=== PATIENT | female | born 1960 | race Caucasian/White ===

== ENCOUNTER → 2017-05-28 | Outpatient (CLI) | payer OTHER ==
--- NOTE | 2017-05-28 16:41 | REP ---
Bilateral digital screening mammogram: 05/28/2017: Comparison: 03/24/2016, 11/25/2014, 09/21/2013. Clinical history: Screening examination. She has no current complaints, personal or family history of breast cancer. The breasts are very dense. This limits the sensitivity of mammography. Scattered lymph nodes are seen in the axilla. In the upper outer quadrant of the left breast is a new 17 x 17 x 9 mm density with pleomorphic cluster of microcalcifications within. No nodular tissue asymmetry or calcifications in this region on the previous mammogram. There are no other clusters of microcalcification, dominant masses, skin thickening or other secondary signs of malignancy. A few punctate calcifications periareolar region upper outer quadrant of the left breast unchanged from multiple prior studies as a benign finding. Impression: 1. BI-RADS/ACR category 0 mammogram, incomplete. Additional imaging and/or prior mammograms for comparison. Although suspicious on its right, further evaluation with diagnostic mammogram and breast ultrasound warranted to determine best route for any potential biopsy. Remainder the breast is unremarkable and unchanged. This mammogram was interpreted with the aid of an FDA-approved computer-aided detection system. The patient states she had a clinical breast exam in 05/2017.
== END ==
LOC: M WHC 11:02
PROVIDERS: ATTEND Nurse Practitioner Family
DX: Z12.31 Encounter for screening mammogram for malignant neoplasm of breast (principal)

== ENCOUNTER → 2017-06-03 | Outpatient (CLI) | payer OTHER ==
--- NOTE | 2017-06-03 17:12 | REP ---
DIAGNOSTIC MAMMOGRAM LEFT BREAST WITH LEFT BREAST ULTRASOUND: Spot compression views of the left breast are performed in the upper outer quadrant and correlated with the recent mammogram of 05/28/2017 and compared to other prior exams. There is persistence of an ill-defined oval nodule in the left upper outer quadrant posteriorly in the region of the axillary tail. Maximum diameter is 1.5 cm. There are multiple clustered pleomorphic microcalcifications within the nodule. Real-time sonographic evaluation of the upper outer quadrant of the left breast demonstrates a heterogeneous solid appearing nodule measuring 1.1 cm in diameter. Tiny echogenic foci within the nodule are compatible with microcalcifications. IMPRESSION: ACR category 4 suspicious. Ill-defined nodule in the left axillary tail region contains microcalcifications and is solid by ultrasound. Recommend ultrasound guided biopsy. The patient should have a postprocedure mammogram following the ultrasound guided biopsy and the specimens should be radiographed for the presence of microcalcifications. BI-RADS/ACR category 4 mammogram. Suspicious abnormality - biopsy should be considered. Usually requires biopsy. This mammogram was interpreted with the aid of an FDA-approved computer-aided detection system. The patient letter being requested is M4. Signed by Navid Collins MD 06/04/2017 04:54 P
== END ==
LOC: M RAD 14:50
PROVIDERS: ATTEND Nurse Practitioner Family
DX: R92.8 Other abnormal and inconclusive findings on diagnostic imaging of breast (principal)
CPT/HCPCS: 76642; G0206

== ENCOUNTER 2018-10-17 07:12 | Outpatient (RCR) | payer OTHER | END 2018-10-18 | LOC: M OT 07:12 | PROVIDERS: ATTEND Family Medicine | DX: M79.602 Pain in left arm (principal) ==

== ENCOUNTER 2018-11-16 08:00 | Outpatient (RCR) | payer OTHER | END 2018-11-18 | LOC: M OT 08:00 | PROVIDERS: ATTEND Family Medicine | DX: M79.602 Pain in left arm (principal) ==

== ENCOUNTER → 2018-11-18 | Outpatient (CLI) | payer OTHER ==
--- NOTE | 2018-11-18 15:10 | REP ---
MRI left elbow without contrast: History: Pain in the left arm. No comparison imaging. X-rays made by history. Technique: Axial, coronal and sagittal imaging planes are utilized. T1 and T2-weighted scans were included with and without fat saturation. MRI findings: Cortical and medullary bone signal intensity are normal in the distal humerus, proximal radius, and proximal ulna. No occult fracture is seen. No bony destructive lesion is appreciated. There is no evidence of elbow joint effusion. Triceps, biceps, and brachialis tendons appear intact. Skeletal muscle is normal in signal intensity on T1 and T2-weighted scans. No juxtaarticular mass or cyst is seen. There is no evidence of medial or lateral collateral ligament disruption. There is some heterogeneous signal intensity however, at the lateral epicondyle which may reflect mild lateral epicondylitis changes. The medial epicondylar soft tissues are unremarkable. This finding should be correlated with signs and symptoms. No cartilaginous defect is seen. Impression: Findings consistent with lateral epicondylitis. Otherwise negative MRI study of the left elbow. Electronically Signed by Mazin Lott MD 11/18/2018 04:04 P
--- NOTE | 2018-11-18 15:41 | REP ---
MRI left shoulder without contrast: History: Pain in the left arm. No improvement with physical therapy. X-rays negative by history. No radiographs available. Technique: Axial, oblique coronal, and oblique sagittal imaging planes were utilized. T1 and T2-weighted scans were obtained with and without fat saturation in the usual fashion. MRI findings: Cortical and medullary bone signal intensity are normal. There is a moderate size subacromial subdeltoid bursal effusion noted. Minimal glenohumeral joint fluid is seen. There is AC joint hypertrophy mild in degree consistent with early osteoarthritis. There is mild inferolateral acromion process spurring. Tendinosis tendonitis change is seen in the supraspinatus tendon diffusely on oblique coronal T1-weighted scans with swelling and increased signal intensity. No focal cuff tear is seen. Biceps tendon appears intact. The infraspinatus tendon is unremarkable. Subscapularis tendon shows mild tendinosis change as well. No anterior or posterior cartilaginous labral tear is appreciated. No articular cartilage lesion is seen. The superior labral cartilage appears to be intact. There is a 8 mm cyst anterior to the subscapularis tendon with some adjacent edema consistent with a small ganglion cyst. Impression: 1. Moderate tendinosis tendonitis change in the distal supraspinatus. Subacromial subdeltoid bursal effusion. AC joint hypertrophy and minimal acromion process spurring. 2. Small 8 mm ganglion cyst along the anterior margin of the subscapularis tendon consistent with a small ganglion. There is some adjacent soft tissue edema. There is tendinosis change in the subscapularis tendon as well. Electronically Signed by Mazin Lott MD 11/18/2018 04:04 P
== END ==
LOC: M RAD 12:34
PROVIDERS: ATTEND Family Medicine
DX: M79.602 Pain in left arm (principal); M67.412 Ganglion, left shoulder

== ENCOUNTER → 2020-04-30 | Outpatient (REF) | payer OTHER | LOC: M SFHCWAGY 10:41 | PROVIDERS: ATTEND Nurse Practitioner Family | DX: Z12.4 Encounter for screening for malignant neoplasm of cervix (principal); N95.2 Postmenopausal atrophic vaginitis | CPT/HCPCS: 87624; G0123 ==

== ENCOUNTER → 2020-08-12 | Outpatient (REF) | payer OTHER ==
[2020-08-12 12:29] LABS: ALT/SGPT 18 U/L (12-78); BLOOD UREA NITROGEN 11 MG/DL (7-18); CALCIUM LEVEL 9.1 MG/DL (8.5-10.1); CARBON DIOXIDE LEVEL 29 MEQ/L (21-32); CHLORIDE LEVEL 105 MEQ/L (98-107); CHOLESTEROL LEVEL 307 MG/DL (<200); CHOLESTEROL RISK RATIO 3.654 (<5); CREATININE FOR GFR 0.64 MG/DL (0.55-1.30); GLOMERULAR FILTRATION RATE > 60.0 (>51); GLUCOSE, FASTING 98 MG/DL (70-100); HDL CHOLESTEROL 84 MG/DL (>40); LDL CHOLESTEROL 198 MG/DL (<100); NON-HDL-C 223 MG/DL; POTASSIUM SERUM 4.3 MEQ/L (3.5-5.1); SODIUM LEVEL 140 MEQ/L (136-145); TOTAL PROTEIN 6.8 GM/DL (6.4-8.2); TRIGLYCERIDES LEVEL 123 MG/DL (<150)
== END ==
LOC: M SFHCCLAY 09:01
PROVIDERS: ATTEND Family Medicine
DX: E78.2 Mixed hyperlipidemia (principal)

== ENCOUNTER → 2021-09-15 | Outpatient (CLI) | payer BC | LOC: M CLY 11:15 | PROVIDERS: ATTEND Family Medicine | DX: M51.36 Other intervertebral disc degeneration, lumbar region (principal); M54.50 Low back pain, unspecified ==

== ENCOUNTER → 2021-09-15 | Outpatient (REF) | payer BC ==
[2021-09-15 16:31] LABS: ALBUMIN 4.3 GM/DL (3.2-5.2); ALT/SGPT 24 U/L (12-78); BILIRUBIN,TOTAL 1.6 MG/DL (0.2-1.0); BLOOD UREA NITROGEN 12 MG/DL (7-18); CALCIUM LEVEL 9.6 MG/DL (8.5-10.1); CARBON DIOXIDE LEVEL 28 MEQ/L (21-32); CHLORIDE LEVEL 104 MEQ/L (98-107); CHOLESTEROL LEVEL 274 MG/DL (<200); CHOLESTEROL RISK RATIO 3.149 (<5); CREATININE FOR GFR 0.73 MG/DL (0.55-1.30); GLOMERULAR FILTRATION RATE > 60.0 (>51); GLUCOSE, FASTING 101 MG/DL (70-100); HDL CHOLESTEROL 87 MG/DL (>40); LDL CHOLESTEROL 163 MG/DL (<100); NON-HDL-C 187 MG/DL; POTASSIUM SERUM 4.5 MEQ/L (3.5-5.1); SODIUM LEVEL 138 MEQ/L (136-145); TOTAL PROTEIN 7.4 GM/DL (6.4-8.2); TRIGLYCERIDES LEVEL 120 MG/DL (<150)
== END ==
LOC: M SFHCCLAY 11:07
PROVIDERS: ATTEND Family Medicine
DX: E78.2 Mixed hyperlipidemia (principal)

== ENCOUNTER → 2022-09-25 | Outpatient (REF) | payer BC ==
[2022-09-25 12:01] LABS: BASO % 0.8 % (0.0-1.0); EOS # 0.1 10^3/uL (0.0-0.5); HEMATOCRIT 36.9 % (36.0-47.0); HEMOGLOBIN 12.3 g/dl (12.0-15.5); LYMPH # 2.1 10^3/uL (1.5-5.0); LYMPH % 41.9 % (24.0-44.0); MEAN CORPUSCULAR HEMOGLOBIN 31.7 pg (27.0-33.0); MEAN CORPUSCULAR HGB CONC 33.3 g/dl (32.0-36.5); MEAN CORPUSCULAR VOLUME 95.1 fl (80.0-96.0); MONO # 0.4 10^3/uL (0.0-0.8); MONO % 8.8 % (2.0-8.0); NEUTROPHILS # 2.4 10^3/uL (1.5-8.5); NEUTROPHILS % 47.3 % (36.0-66.0); PLATELET COUNT, AUTOMATED 317 10^3/uL (150-450); RED BLOOD COUNT 3.88 10^6/uL (4.00-5.40)
[2022-09-25 12:07] LABS: ALBUMIN 3.9 G/DL (3.2-5.2); ALKALINE PHOSPHATASE 67 U/L (46-116); ALT/SGPT 14 U/L (7.0-40); AST/SGOT 14 U/L (<34); BLOOD UREA NITROGEN 11 MG/DL (9-23); CALCIUM LEVEL 9.2 MG/DL (8.3-10.6); CARBON DIOXIDE LEVEL 28 MMOL/L (20-31); CHLORIDE LEVEL 104 MMOL/L (98-107); CHOLESTEROL LEVEL 252 MG/DL (<200); CHOLESTEROL RISK RATIO 3.61 (<5); CREATININE FOR GFR 0.73 MG/DL (0.55-1.30); GLOMERULAR FILTRATION RATE > 60.0 (>45); GLUCOSE, FASTING 91 MG/DL (74-106); HDL CHOLESTEROL 69.8 MG/DL (>40); NON-HDL-C 182.2 MG/DL; POTASSIUM SERUM 4.4 MMOL/L (3.5-5.1); SODIUM LEVEL 139 MMOL/L (136-145); TOTAL PROTEIN 6.5 G/DL (5.7-8.2); TRIGLYCERIDES LEVEL 86 MG/DL (<150)
== END ==
LOC: M SFHCCLAY 07:48
PROVIDERS: ATTEND Family Medicine
DX: I10 Essential (primary) hypertension (principal); E78.2 Mixed hyperlipidemia; E55.9 Vitamin D deficiency, unspecified

== ENCOUNTER → 2023-09-21 | Outpatient (REF) | payer BC | LOC: M SFHCWAGY 18:15 | PROVIDERS: ATTEND Nurse Practitioner Family | DX: Z12.4 Encounter for screening for malignant neoplasm of cervix (principal) | CPT/HCPCS: 87624; G0123 ==

== ENCOUNTER 2025-06-19 08:49 | Day surgery (SDC) | payer BC ==
[~2025-06-19] VITALS: Ht 162.6 cm; Wt 72.6 kg
[~2025-06-19 08:49] MED LIST: LIDOCAINE 2% 100 MG/5 ML SDV (FOR ANES.) As Ordered ONE; LISI20TA33 PO; THERTAB52 PO; VITA400T19 PO
[2025-06-19] MEDS ORDERED: GLYCOPYRROLATE INJ 0.2 MG/ML 2 ML VIAL As Ordered ONE (12:01)
[2025-06-19 12:16] VITALS: TEMP 97.4
[2025-06-19 12:26] VITALS: BP 121/61; O2SAT 98
== END 2025-06-19 12:35 | disposition home or self-care (01) ==
LOC: M OPP 08:49
PROVIDERS: ATTEND Internal Medicine Gastroenterology
DX: Z12.11 Encounter for screening for malignant neoplasm of colon (principal); Z86.0101 Personal history of adenomatous and serrated colon polyps; I10 Essential (primary) hypertension; Z79.899 Other long term (current) drug therapy; Z85.3 Personal history of malignant neoplasm of breast; Z92.21 Personal history of antineoplastic chemotherapy; Z92.3 Personal history of irradiation
CPT/HCPCS: 45378; J1596